=== PATIENT | female | born 1955 | race Caucasian/White ===

== ENCOUNTER 2016-08-02 22:07 | Emergency (ER) | payer MEDICAID ==
--- NOTE | 2016-08-02 22:44 | ER Document Report ---
ED General - General Chief Complaint: Leg Pain Stated Complaint: LEG PAIN Mode of Arrival: Medic Information source: Patient, Emergency Med Personnel Notes: Patient presents to the emergency department via EMS for complaints of leg pain. Patient reports she has a history of blood clots and has had multiple surgeries to her left leg. She reports pain for the past 2 years and she just cannot stand the pain anymore. EMS reports patient lives by herself and unable to drive to the physician anymore. She denies fever vomiting diarrhea. EMS reports patient has been drinking vodka. Patient is loud, cussing at me as I walk in the door before I even introduce myself. When I asked patient about her history she turns her head and just cusses "f*#@ unbelievable". Patient is upset reports she cannot take the pain. Patient received 1 mg dilaudid by EMS. TRAVEL OUTSIDE OF THE [place] IN LAST 30 DAYS: No - HPI Onset: Other - 2 years Onset/Duration: Persistent Quality of pain: Achy Severity: Severe Pain Level: 5 Associated symptoms: None Exacerbated by: Denies Relieved by: Denies Similar symptoms previously: Yes Recently seen / treated by doctor: No - Related Data Allergies/Adverse Reactions: codeine [Codeine] Allergy (Unverified 10/19/14 17:23) Vomiting Past Medical History - General Information source: Patient - Social History Smoking Status: Unknown if Ever Smoked Frequency of alcohol use: Heavy Drug Abuse: None Lives with: Alone Family History: Reviewed & Not Pertinent Patient has suicidal ideation: No Patient has homicidal ideation: No - Past Medical History Cardiac Medical History: Reports: Hx DVT, Hx Hypertension, Hx Peripheral Vascular Disease Psychiatric Medical History: Reports: Hx Depression Past Surgical History: Reports: Hx Breast Surgery - Right lumpectomy, Hx Cholecystectomy, Hx Hysterectomy, Hx Vascular Surgery - Immunizations Hx Diphtheria, Pertussis, Tetanus Vaccination: Yes Review of Systems - Review of Systems Notes: Review HPI for review of systems., All other systems negative Physical Exam - Vital signs Vitals: Temp Pulse Resp BP Pulse Ox 98.9 F 106 H 20 140/112 H 95 08/02/16 22:30 08/02/16 22:30 08/02/16 22:30 08/02/16 22:30 08/02/16 22:30 Interpretation: Normal - Notes Notes: PHYSICAL EXAMINATION: GENERAL: Appears older than her age HEAD: Atraumatic, normocephalic. EYES: Pupils equal round extraocular movements intact, sclera anicteric, conjunctiva are normal. ENT: nares patent, Moist mucous membranes. NECK: Normal range of motion, supple without lymphadenopathy LUNGS: HEART: ABDOMEN: EXTREMITIES: Normal range of motion, left leg tight, c/o calf pain, erythema anterior left ankle to foot NEUROLOGICAL: Cranial nerves grossly intact. Normal sensory/motor exams. PSYCH: Normal mood, normal affect. SKIN: Warm, Dry, normal turgor, slight erythema to left anterior, medial ankle to dorsal foot, abrasion to right dorsal foot ~ 2 cm, pink, healing surgical scar noted to medial right leg, to LLL with 7 cm abrasion, upper thigh 2 cm laceration, no erythema/warmth/discharge to open sites, LLL 35cm RLL 30cm Course - Re-evaluation Re-evalutation: 08/02/16 23:33 Patient is difficult to assess, will not let me fully examine her. She keeps saying she wants to go home. Patient with EtOH on board, no shortness of breath respiratory rate even and unlabored. 08/03/16 00:05 Patient is still angry at me. Nurses been able to get more information from her to [facility]. Patient's been to [facility] for several times. She was seen at [facility], June 30 when the open wounds were glued shut 08/03/16 01:00 Dr Fall in to assess patient. Patient reports she just wants to go home. Patient reports she lives alone, does not have anyone to call to pick her up. She wants a cab but cannot afford a cab. The patient is up walking around and the exam room with no problems. Her voice is clear. She reports she just came here for pain medication. She reports she has anticoagulates at home and if we were not going to give her pain medication she is ready to go home. Dr Smith arranged cab home for patient. She was instructed that her exam was not completed, her labs were not done, she has not had a Doppler on her leg and possible blood clot. Patient reports that she's had this leg pain for 2 years. She just wants to go home. AMA ordered, pt instructed on possible adverse effects of blood clot. - Vital Signs Vital signs: Temp Pulse Resp BP Pulse Ox 98.9 F 106 H 20 140/112 H 95 08/02/16 22:30 08/02/16 22:30 08/02/16 22:30 08/02/16 22:30 08/02/16 22:30 - Laboratory Result Diagrams: 08/02/16 22:48 08/02/16 22:48 Laboratory results interpreted by me: 08/02/16 22:48 RDW 14.7 H Basophils % 2.2 H Discharge - Discharge Clinical Impression: Left leg pain, elevated blood pressure Condition: Stable Disposition: AGAINST MEDICAL ADVICE Additional Instructions: *You have been evaluated for left leg pain *Monitor your blood pressure. Your blood pressure was elevated today. This may be because you were anxious, in pain or because you need medication. It is important to follow up with your primary care provider for full evaluation. *You have chosen to sign out AMA, against medical advice. *Your exam was not completed. You have a history of blood clots, you may have another blood clot. This blood clot may travel to your lungs, heart or brain possibly causing your *Continue to take your anticoagulant as prescribed *Follow up with your primary care provider Friday *Return to ED for worsening condition, changes, needs, increased pain Forms: Elevated Blood Pressure
[2016-08-02 22:58] LABS: ABSOLUTE BASOPHILS # (AUTO) 0.2 10^3/uL (0.0-0.2); ABSOLUTE LYMPHOCYTES (AUTO) 2.9 10^3/uL (0.5-4.7); ABSOLUTE MONOCYTES (AUTO) 0.5 10^3/uL (0.1-1.4); ABSOLUTE NEUT (AUTO) 5.5 10^3/uL (1.7-8.2); BASOPHILS % (AUTO) 2.2 % (0-2); EOSINOPHILS % (AUTO) 0.4 % (0-6); HEMATOCRIT 42.7 % (36.0-47.0); HEMOGLOBIN 14.3 g/dL (12.0-15.5); HGB HCT DIFFERENCE 0.2; MEAN CORPUSCULAR HEMOGLOBIN 30.1 pg (27.0-33.4); MEAN CORPUSCULAR HGB CONC 33.6 g/dL (32.0-36.0); MEAN CORPUSCULAR VOLUME 90 fl (80-97); MONOCYTES % (AUTO) 5.1 % (3-13); RED BLOOD COUNT 4.76 10^6/uL (3.72-5.28); RED CELL DISTRIBUTION WIDTH 14.7 % (11.5-14.0); SEGMENTED NEUTROPHILS % (AUTO) 60.3 % (42-78); WHITE BLOOD COUNT 9.1 10^3/uL (4.0-10.5)
[2016-08-02 23:06] LABS: PROTHROMBIN TIME 12.5 SEC (11.4-15.4)
[2016-08-03 01:17] VITALS: BP 117/85
== END 2016-08-03 01:14 | disposition left against medical advice (07) ==
LOC: ER 22:07
DX: M79.605 Pain in left leg (principal); Z98.890 Other specified postprocedural states; I10 Essential (primary) hypertension; I73.9 Peripheral vascular disease, unspecified; Z86.718 Personal history of other venous thrombosis and embolism; Z88.5 Allergy status to narcotic agent; Z79.01 Long term (current) use of anticoagulants; Z53.29 Procedure and treatment not carried out because of patient's decision for other reasons
CPT/HCPCS: 36415; 85025; 85610; 87040; 87077; 87186; 99283

== ENCOUNTER → 2017-06-09 | Outpatient (CLI) | payer MEDICAID ==
--- NOTE | 2017-06-09 15:50 | XCELERA REPORT ---
[address] [address] Lower Extremity Arterial Evaluation Name: KISHORE DORAN Age: 62 yrs Gender: Female : 1955 Patient Status: Outpatient Patient Location: Study Date: 06/09/2017 11:03 AM Procedure: A color flow and duplex scan of the lower extremity arteries was performed bilaterally with velocity and waveform anaylsis. Reason For Study: PVD UNSPECIFIED BILATERAL Ordering Physician: OPAL ARBOLEDA Performed By: Tricia Fuentes Measurements and Calculations Right Left ENVIRONMENTAL LEAD PSV 198.4 179.9 cm/sec Prox PFA PSV -100.7 -90.4 cm/sec Prox SFA PSV 72.5 95.8 cm/sec Mid SFA PSV -60.8 -82.5 cm/sec Dist SFA PSV -34.4 -112.5 cm/sec Prox Pop A PSV 34.4 cm/sec Dist Pop A PSV -31.2 cm/sec Dist JACQUE PSV 15.5 -11.0 cm/sec Dist VP PUBLIC RELATIONS PSV 17.5 -132.0 cm/sec Dist Belén A PSV 12.0 cm/sec Kenneth Pedis PSV 9.6 8.3 cm/sec Right Side Arterial Evaluation Normal velocity and triphasic waveforms noted in the Common Femoral artery. Biphasic in the Deep Femoral and to the Popliteal artery. Monophasic with moderately preserved amplitude to the infrageniculate vessels. 20-49 % stenosis at the Femoral artery. With sequential changes. Ankle Brachial index not done due to pain.. Left Side Arterial Evaluation Normal velocity and biphasic waveforms noted in the Common Femoral artery. Biphasic in the Deep Femoral and to the Femoral artery. Occluded Popliteal artery. A patent graft is noted into the Posterior Tibial artery. Monophasic with moderately preserved amplitude to the infrageniculate vessels. 20-49 % stenosis at the Aorta Iliac . With sequential changes. Ankle Brachial index not done due to graft.. Critical Findings Findings discussed with Dr Arboleda. Interpretation Summary Severe hemodynamically significant lesions in the bilateral lower extremities, on duplex imaging, at rest. Patent distal left sided bypass graft noted. : OPAL ARBOLEDA > Liborio El
== END ==
LOC: SP 10:27
PROVIDERS: ATTEND Internal Medicine Geriatric Medicine
DX: I73.9 Peripheral vascular disease, unspecified (principal)
CPT/HCPCS: 93925

== ENCOUNTER 2018-01-20 14:47 | Emergency (ER) | payer MEDICAID ==
[2018-01-20] MEDS ORDERED: FENTANYL CITRATE INJ/PF 100 MCG/2 ML AMPUL IM ONE (15:50)
--- NOTE | 2018-01-20 15:54 | ER Document Report ---
ED Medical Screen (RME) - General Chief Complaint: Leg Pain Stated Complaint: LEG PAIN Time Seen by Provider: 01/20/18 15:36 Notes: RAPID MEDICAL EVALUATION DISCLOSURE I have seen this patient as part of a Rapid Medical Evaluation and, if applicable, placed any initially appropriate orders. The patient will be seen and fully evaluated, including a full history and physical exam, by a provider ( in Main ED or Fast Track) when a room becomes available. 62-year-old female PMH PVD PAD here with complaints of left lower extremity pain that worsened acutely last night and is associated with some swelling. The pain is worse with walking. She has not noticed much of a color or temperature. Change she called her doctor's office in [place], Dr. Urena of vascular surgery, and he directed her to come here for evaluation of possible decreased blood flow. EXAM Left lower extremity Refill approximately 4-6 seconds Similar color and temperature of both lower extremities TRAVEL OUTSIDE OF THE [place] IN LAST 30 DAYS: No - Related Data Allergies/Adverse Reactions: codeine [Codeine] Allergy (Verified 01/20/18 14:48) Vomiting Sulfa (Sulfonamide Antibiotics) Allergy (Verified 01/20/18 14:48) Past Medical History - Social History Chew tobacco use (# tins/day): No Frequency of alcohol use: Occasional Drug Abuse: None - Past Medical History Cardiac Medical History: Reports: Hx DVT, Hx Hypertension, Hx Peripheral Vascular Disease Renal/ Medical History: Denies: Hx Peritoneal Dialysis Psychiatric Medical History: Reports: Hx Depression Past Surgical History: Reports: Hx Breast Surgery - Right lumpectomy, Hx Cholecystectomy, Hx Hysterectomy, Hx Vascular Surgery - Immunizations Hx Diphtheria, Pertussis, Tetanus Vaccination: Yes Physical Exam - Vital signs Vitals: Temp Pulse Resp BP Pulse Ox 99.0 F 114 H 18 203/94 H 98 01/20/18 14:53 01/20/18 14:53 01/20/18 14:53 01/20/18 14:53 01/20/18 14:53 Course - Vital Signs Vital signs: Temp Pulse Resp BP Pulse Ox 99.0 F 114 H 18 203/94 H 98 01/20/18 14:53 01/20/18 14:53 01/20/18 14:53 01/20/18 14:53 01/20/18 14:53 Doctor's Discharge - Discharge Referrals: OPAL ARBOLEDA MD [Primary Care Provider] - Follow up as needed
[2018-01-20 16:31] LABS: ABSOLUTE BASOPHILS # (AUTO) 0.1 10^3/uL (0.0-0.2); ABSOLUTE EOSINOPHILS # (AUTO) 0.1 10^3/uL (0.0-0.6); ABSOLUTE LYMPHOCYTES (AUTO) 2.1 10^3/uL (0.5-4.7); ABSOLUTE MONOCYTES (AUTO) 0.6 10^3/uL (0.1-1.4); ABSOLUTE NEUT (AUTO) 5.1 10^3/uL (1.7-8.2); BASOPHILS % (AUTO) 1.1 % (0-2); EOSINOPHILS % (AUTO) 0.8 % (0-6); HEMATOCRIT 41.4 % (36.0-47.0); HEMOGLOBIN 14.1 g/dL (12.0-15.5); MEAN CORPUSCULAR HEMOGLOBIN 32.3 pg (27.0-33.4); MEAN CORPUSCULAR HGB CONC 34.1 g/dL (32.0-36.0); MEAN CORPUSCULAR VOLUME 95 fl (80-97); MONOCYTES % (AUTO) 8.1 % (3-13); PLATELET COUNT 248 10^3/uL (150-450); RED BLOOD COUNT 4.37 10^6/uL (3.72-5.28); RED CELL DISTRIBUTION WIDTH 13.5 % (11.5-14.0); TOTAL CELLS COUNTED % (AUTO) 100 %
[2018-01-20 16:42] LABS: ALANINE AMINOTRANSFERASE 21 U/L (9-52); ALBUMIN 4.4 g/dL (3.5-5.0); ALKALINE PHOSPHATASE 54 U/L (38-126); ANION GAP 11 (5-19); ASPARTATE AMINO TRANSFERASE 19 U/L (14-36); BILIRUBIN,DIRECT 0.3 mg/dL (0.0-0.4); BILIRUBIN,TOTAL 0.4 mg/dL (0.2-1.3); BLOOD UREA NITROGEN 13 mg/dL (7-20); CARBON DIOXIDE 25 mmol/L (22-30); CHLORIDE 111 mmol/L (98-107); GLUCOSE 94 mg/dL (75-110); POTASSIUM 4.1 mmol/L (3.6-5.0); SODIUM 147.2 mmol/L (137-145); TOTAL PROTEIN 6.9 g/dL (6.3-8.2)
--- NOTE | 2018-01-20 19:21 | ER Document Report ---
ED General - General Chief Complaint: Leg Pain Stated Complaint: LEG PAIN Time Seen by Provider: 01/20/18 15:36 Mode of Arrival: Ambulatory Information source: Patient Notes: 62-year-old female with a history of peripheral artery disease presents emergency department with complaints of left lower extremity pain. Patient states that she has constant pain but it is worsened overnight. She states that the pain is worse with ambulation. She has not noticed a change in the color or temperature of her left lower extremity. She follows up with a vascular surgeon in [place], Dr. Urena. He told her to go to the emergency department for an arterial evaluation. Patient denies any trauma, injury, numbness, tingling, weakness. TRAVEL OUTSIDE OF THE [place] IN LAST 30 DAYS: No - HPI Onset: This morning Onset/Duration: Gradual Quality of pain: Achy Severity: Moderate Associated symptoms: None Exacerbated by: Movement, Walking Relieved by: Denies Similar symptoms previously: Yes Recently seen / treated by doctor: No - Related Data Allergies/Adverse Reactions: codeine [Codeine] Allergy (Verified 01/20/18 14:48) Vomiting Sulfa (Sulfonamide Antibiotics) Allergy (Verified 01/20/18 14:48) Past Medical History - Social History Smoking Status: Current Every Day Smoker Chew tobacco use (# tins/day): No Frequency of alcohol use: Occasional Drug Abuse: None Family History: Reviewed & Not Pertinent Patient has suicidal ideation: No Patient has homicidal ideation: No - Past Medical History Cardiac Medical History: Reports: Hx DVT, Hx Hypertension, Hx Peripheral Vascular Disease Renal/ Medical History: Denies: Hx Peritoneal Dialysis Psychiatric Medical History: Reports: Hx Depression Past Surgical History: Reports: Hx Breast Surgery - Right lumpectomy, Hx Cholecystectomy, Hx Hysterectomy, Hx Vascular Surgery - Immunizations Hx Diphtheria, Pertussis, Tetanus Vaccination: Yes Review of Systems - Review of Systems Constitutional: No symptoms reported EENT: No symptoms reported Cardiovascular: No symptoms reported Respiratory: No symptoms reported Gastrointestinal: No symptoms reported Genitourinary: No symptoms reported Female Genitourinary: No symptoms reported Musculoskeletal: Muscle pain Skin: No symptoms reported Hematologic/Lymphatic: No symptoms reported Neurological/Psychological: No symptoms reported -: Yes All other systems reviewed and negative Physical Exam - Vital signs Vitals: Temp Pulse Resp BP Pulse Ox 99.0 F 114 H 18 203/94 H 98 01/20/18 14:53 01/20/18 14:53 01/20/18 14:53 01/20/18 14:53 01/20/18 14:53 Interpretation: Hypertensive, Tachycardic - Notes Notes: PHYSICAL EXAMINATION: GENERAL: Well-appearing, well-nourished and in no acute distress. HEAD: Atraumatic, normocephalic. EYES: Pupils equal round and reactive to light, extraocular movements intact, conjunctiva are normal. ENT: Nares patent, oropharynx clear without exudates. Moist mucous membranes. NECK: Normal range of motion, supple without lymphadenopathy LUNGS: Breath sounds clear to auscultation bilaterally and equal. No wheezes rales or rhonchi. HEART: Regular rate and rhythm without murmurs ABDOMEN: Soft, nontender, nondistended abdomen. No guarding, no rebound. No masses appreciated. Female : deferred Musculoskeletal: Normal range of motion, no pitting or edema. No cyanosis. 2+ dorsalis pedis and posterior tibialis pulses. Normal coloration of the left lower extremity. NEUROLOGICAL: Cranial nerves grossly intact. Normal speech, normal gait. Normal sensory, motor exams PSYCH: Normal mood, normal affect. SKIN: Warm, Dry, normal turgor, no rashes or lesions noted. - General General appearance: Appears well, Alert - HEENT Head: Normocephalic, Atraumatic Eyes: Normal Pupils: PERRL - Respiratory Respiratory status: No respiratory distress Chest status: Nontender Breath sounds: Normal Chest palpation: Normal - Cardiovascular Rhythm: Regular Heart sounds: Normal auscultation Murmur: No - Abdominal Inspection: Normal Distension: No distension Bowel sounds: Normal Tenderness: Nontender Organomegaly: No organomegaly - Back Back: Normal, Nontender - Extremities General upper extremity: Normal inspection, Nontender, Normal color, Normal ROM , Normal temperature General lower extremity: Normal inspection, Nontender, Normal color, Normal ROM , Normal temperature, Normal weight bearing. No: Lynn's sign - Neurological Neuro grossly intact: Yes Cognition: Normal Orientation: AAOx4 Stone Coma Scale Eye Opening: Spontaneous Stone Coma Scale Verbal: Oriented Yony Coma Scale Motor: Obeys Commands Yony Coma Scale Total: 15 Speech: Normal Motor strength normal: LUE, RUE, LLE, RLE Sensory: Normal - Psychological Associated symptoms: Normal affect, Normal mood - Skin Skin Temperature: Warm Skin Moisture: Dry Skin Color: Normal Course - Re-evaluation Re-evalutation: 01/20/18 19:39 I spoke with the radiologist regarding the arterial study. No changes from previous exam. Graft is patent. I discussed findings with the patient. I instructed her to contact her vascular surgeon tomorrow for follow-up appointment. I told her to continue taking her medications as directed and to return to the emergency department for any worsening symptoms. - Vital Signs Vital signs: Temp Pulse Resp BP Pulse Ox 99.0 F 114 H 18 203/94 H 98 01/20/18 14:53 01/20/18 14:53 01/20/18 14:53 01/20/18 14:53 01/20/18 14:53 - Laboratory Result Diagrams: 01/20/18 16:07 01/20/18 16:07 Laboratory results interpreted by me: 01/20/18 16:07 Sodium 147.2 H Chloride 111 H Discharge - Discharge Clinical Impression: Peripheral arterial disease Condition: Good Disposition: HOME, SELF-CARE Instructions: Leg Pain Nonspecific ([facility]) Referrals: OPAL ARBOLEDA MD [Primary Care Provider] - Follow up as needed
[2018-01-20 19:51] VITALS: BP 180/98
--- NOTE | 2018-01-21 09:54 | XCELERA REPORT ---
[address] [address] Lower Extremity Arterial Evaluation Name: KISHORE DORAN Age: 62 yrs Gender: Female : 1955 Patient Status: Emergency Patient Location: ER Study Date: 01/20/2018 06:10 PM Procedure: A color flow and duplex scan of the lower extremity arteries was performed on the left with velocity and waveform anaylsis. Reason For Study: LLE PAIN, H/O PVD / PAD Ordering Physician: BECKA DEGROOT Performed By: Tricia Fuentes Measurements and Calculations Right Left BOWLING BALL WEIGHER AND PACKER PSV 175.8 cm/sec Prox PFA PSV -59.7 cm/sec Prox SFA PSV 105.6 cm/sec Mid SFA PSV -86.0 cm/sec Dist SFA PSV -40.5 cm/sec Dist Pop A PSV -37.7 cm/sec Dist JACQUE PSV -24.6 cm/sec Dist DANCE ARTIST PSV -52.8 cm/sec Kenneth Pedis PSV 67.0 11.0 cm/sec Left Side Arterial Evaluation Normal velocity and biphasic waveforms noted in the Common Femoral artery. Triphasic Deep Femoral, Occluded Popliteal with patent in situ bypass to Posterior Tibial artery. Biphasic in the Femoral, bypass and Posterior Tibial. Retrograde filling in the biphasic Anterior Tibial artery with diminished velocity. 0-19% stenosis at the Aorto Iliac inflow. With sequential changes, patent Pop Posterior Tibial bypass, around occluded Popliteal. Ankle Brachial index is 1.00. Interpretation Summary Moderate hemodynamically significant lesions in the left lower extremity only, on duplex imaging, at rest. Findings similar to May 2017 study, suggesting stable, patent,bypass. : BECKA DEGROOT [place]
== END 2018-01-20 19:49 | disposition home or self-care (01) ==
LOC: ER 14:47
DX: I73.9 Peripheral vascular disease, unspecified (principal); M79.605 Pain in left leg; F17.200 Nicotine dependence, unspecified, uncomplicated; I10 Essential (primary) hypertension; Z88.6 Allergy status to analgesic agent; Z88.2 Allergy status to sulfonamides; Z90.49 Acquired absence of other specified parts of digestive tract; Z86.718 Personal history of other venous thrombosis and embolism; Z90.710 Acquired absence of both cervix and uterus
CPT/HCPCS: 99284; 96372; 36415; 85025; 80053; 93926 ×2; J3010